=== PATIENT | male | born 1975 | race American Indian/Alaskan Native ===

== ENCOUNTER 2017-10-28 11:02 | Emergency (ER) | payer MEDICAID, OTHER ==
[2017-10-28] MEDS: KETOROLAC 30 MG INJ IM (13:29)
[2017-10-28] MEDS: predniSONE 20 MG TAB PO (13:30)
== END 2017-10-28 15:27 | disposition home or self-care (01) ==
LOC: FTE 11:02
DX: M10.9 Gout, unspecified (principal)
CPT/HCPCS: 73610; 96372; 99284-25